=== PATIENT | female | born 1960 | race Two or more races ===

== ENCOUNTER 2020-12-13 07:05 | Day surgery (SDC) | payer OTHER ==
[~2020-12-13 07:05] MED LIST: CRESTOR40 MG PO; SYNTHROID88 MCG PO; TOPROL XL50 M1 PO
[2020-12-13] MEDS ORDERED: IBU600 MG PO (12:12)
== END 2020-12-13 15:35 | disposition home or self-care (01) ==
LOC: CIR.AMB 07:05
PROVIDERS: ATTEND Obstetrics & Gynecology Gynecology
DX: N95.0 Postmenopausal bleeding (principal); Z20.822 Contact with and (suspected) exposure to COVID-19

== ENCOUNTER 2023-04-30 05:25 | Day surgery (SDC) | payer OTHER ==
[~2023-04-30] VITALS: Ht 154.9 cm; Wt 74.8 kg
[~2023-04-30 05:25] MED LIST changes: +IBU600 MG PO; +SYNTHROID75 MCG PO
[2023-04-30] MEDS ORDERED: IBU600 MG PO (08:04)
== END 2023-04-30 13:15 | disposition home or self-care (01) ==
LOC: CIR.AMB 05:25
PROVIDERS: ATTEND Obstetrics & Gynecology Gynecology
DX: N95.0 Postmenopausal bleeding (principal); N84.1 Polyp of cervix uteri; Z20.822 Contact with and (suspected) exposure to COVID-19; E78.5 Hyperlipidemia, unspecified; E03.9 Hypothyroidism, unspecified